=== PATIENT | female | born 1990 | race Caucasian/White ===

== ENCOUNTER 2017-03-26 16:11 | Emergency (ER) | payer OTHER ==
[~2017-03-26] VITALS: Ht 160 cm; Wt 97.5 kg
[2017-03-26 16:28] VITALS: BP 139/85
[2017-03-26] MEDS ORDERED: HYDROcodone-ACET 10/325MG TAB PO ONE (16:45)
[2017-03-26 17:00] LABS: Basophils # (auto) 0.2 uL; Basophils % (auto) 1.8 % (0.0-2.0); Eosinophils # (auto) 0.2 uL; Eosinophils % (auto) 1.8 % (0.0-7.0); Hematocrit 37.7 % (36.0-46.0); Hemoglobin 12.9 g/dL (12.2-16.2); Lymphocytes # (auto) 2.1 uL; Lymphocytes % (auto) 19.6 % (10.0-50.0); Mean Corpuscular Hemoglobin 30.8 pg (28.0-32.0); Mean Corpuscular Hgb Conc. 34.1 g/dL (32.0-36.0); Mean Corpuscular Volume 90.3 fL (80.0-100.0); Mean Platelet Volume 8.3 fL (7.4-10.4); Monocytes # (auto) 0.7 uL; Monocytes % (auto) 6.9 % (0.0-12.0); Neutrophils # (auto) 7.4 uL; Neutrophils % (auto) 69.9 % (37.0-80.0); Platelet Count (auto) 352 10^3/uL (140-450); White Blood Cell 10.6 10^3/uL (4.4-10.8)
[2017-03-26 17:54] LABS: Albumin 4.2 g/dL (3.4-5.0); BUN/Creatinine Ratio 12.1; Calcium 9.1 mg/dL (8.5-10.1); Potassium 3.8 mmol/L (3.5-5.1)
[2017-03-26 17:57] LABS: Bilirubin, Total 0.6 mg/dL (0.2-1.0); Total Protein 7.7 g/dL (6.4-8.2)
== END 2017-03-26 17:52 | disposition home or self-care (01) ==
LOC: ER 16:22
DX: N10 Acute pyelonephritis (principal); N39.0 Urinary tract infection, site not specified; N20.0 Calculus of kidney; J45.909 Unspecified asthma, uncomplicated; F17.210 Nicotine dependence, cigarettes, uncomplicated; Z88.8 Allergy status to other drugs, medicaments and biological substances; Z90.89 Acquired absence of other organs
CPT/HCPCS: 36415; 74176; 80053; 81002; 85025